=== PATIENT | female | born 1980 | race Caucasian/White ===

== ENCOUNTER 2016-11-01 02:24 | Inpatient (IN) | payer MEDICARE ==
--- NOTE | ~2016-11-01 | CR72 ---
[facility] A Service of [facility] & [facility] RADIOLOGY TEXT RESULTS PATIENT: YUE KULKARNI LOCATION: [address] : [birth year] UNIT #: [id number] AGE: [address]: Trino Oviedo MD SEX: F ORDER DR: [id number] [facility] [address] [facility]. [place], [place] [address] [id number] I MR#: [id number] #: [id number] NAME: YUE KULKARNI : 1980 SEX: F STUDY DATE/TIME: 11/01/2016 16:39 UNIT: [facility] ROOM: [facility] STUDY DESCRIPTION: CR Chest Single View Portable Attending Physician: Trino Oviedo M.D. Ordering Physician: Hattie Bruno M.D. Primary Care Physician: Christiano Steiner M.D. MEDICAL IMAGING REPORT This report is preliminary unless electronic signature is present EXAM Frontal chest, 11/01/2016 INDICATIONS A 35-year-old female for line placement. TECHNIQUE Frontal chest compared 11/01/2016, 1:30 hours FINDINGS Central line from right neck approach terminates at the mid SVC level. Cardiac silhouette is within normal limits. Vascularity is unremarkable, and the lungs are clear. There is no pneumothorax. IMPRESSION Right-sided central line from a neck approach terminates at the mid SVC level. There is no pneumothorax. Lungs are clear. Dictated by... Kyree Fonseca M.D. THIS IS AN ELECTRONICALLY VERIFIED REPORT Kyree Fonseca M.D. at 11/02/2016 7:31 AM Efrain TD: 11/01/2016 21:38 JOB #: [id number] MEDICAL IMAGING REPORT COPY
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
--- NOTE | ~2016-11-01 | EKG ---
PATIENT: YUE KULKARNI UNIT #: [id number] Ventricular Rate: 59 BPM Atrial Rate: 59 BPM P-R Interval: 150 ms QRS Duration: 94 ms Q-T Interval: 478 ms QTC Calculation(Bezet): 473 ms P [place]: -4 degrees Calculated R [place]: 35 degrees Diagnosis Line: Sinus bradycardia with marked sinus arrhythmia Diagnosis Line: Otherwise normal ECG Diagnosis Line: When compared with ECG of 01-NOV-2016 01:44, Diagnosis Line: Vent. rate has decreased BY 79 BPM Diagnosis Line: Confirmed by KATHERINE OROZCO MD ([id number]) on 11/02/2016 Diagnosis Line: 5:31:08 PM INTERPRETING MD: ERNESTO TOWNSEND
--- NOTE | ~2016-11-01 | OR ---
Unit #: [id number] #: [id number] Patient: YUE KULKARNI [id number] [address] [place], [place] [address] [id number] I MR#: [id number] NAME: YUE KULKARNI ROOM: [facility] Date of Procedure: 11/01/2016 Admission Date: 11/01/2016 Surgeon: Curtis Bruno M.D. : 1980 Attending Physician: Trino Oviedo M.D. Primary Care Physician: Christiano Steiner M.D. PROCEDURE OPERATIVE NOTE PROCEDURE Right intrajugular venous catheter placement with ultrasound guidance. INDICATION FOR PROCEDURE Septic shock. COMPLICATIONS None. DESCRIPTION OF PROCEDURE An informed consent was obtained from the patient after explaining the benefits and risks of this procedure. Patient was prepped and positioned in a proper way, then cleaned with chlorhexidine. Then, with ultrasound guidance, a needle was inserted in the right IJ until blood flow was obtained. Then a guidewire was inserted and the needle was removed. Then a catheter was inserted over the guidewire, and the guidewire was removed. Then the catheter was sutured in place and flushed appropriately. A Biopatch and clean dressing were applied, and a stat chest x-ray confirmed placement with no immediate complication. Dictated by... Ruby Gonzalez TD: 11/01/2016 17:42 JOB #: [id number] PROCEDURE OPERATIVE NOTE X CURTIS CUEVA MD PROCEDURE OPERATIVE NOTE
--- NOTE | ~2016-11-01 | CR72 ---
[facility] A Service of [facility] & [facility] RADIOLOGY TEXT RESULTS PATIENT: YUE KULKARNI LOCATION: [facility] : [birth year] UNIT #: [id number] AGE: [address]: Duong Jackson DO SEX: F ORDER DR: [id number] [facility] [address] [place], [place] [address] [id number] MR#: [id number] Acc #: [id number] NAME: YUE KULKARNI : 1980 SEX: F STUDY DATE/TIME: 11/01/2016 01:30 UNIT: [facility] ROOM: STUDY DESCRIPTION: CR Chest Single View Portable Attending Physician: Duong Jackson D.O. Ordering Physician: Duong Jackson D.O. Primary Care Physician: Christiano Steiner M.D. MEDICAL IMAGING REPORT This report is preliminary unless electronic signature is present EXAM Portable chest, 11/01/2016 at 0130 hours. INDICATION Left side chest pain after overdose on heroin tonight. FINDINGS A single AP portable view of the chest shows both lungs to be clear. The heart is normal in size. The mediastinal contour is normal. No significant bone abnormalities are seen. IMPRESSION Normal portable chest. Dictated by... Rylan La Jr., M.D. THIS IS AN ELECTRONICALLY VERIFIED REPORT Rylan La Jr., M.D. at 11/01/2016 5:29 AM OZIEL/taina TD: 11/01/2016 02:39 JOB #: [id number] MEDICAL IMAGING REPORT COPY
--- NOTE | ~2016-11-01 | EKG ---
PATIENT: YEU KULKARNI UNIT #: [id number] Ventricular Rate: 138 BPM Atrial Rate: 138 BPM QRS Duration: 92 ms Q-T Interval: 380 ms QTC Calculation(Bezet): 575 ms Calculated R [place]: 51 degrees Calculated T [place]: -6 degrees Diagnosis Line: Supraventricular tachycardia Diagnosis Line: Nonspecific ST and T wave abnormality Diagnosis Line: Abnormal ECG Diagnosis Line: No previous ECGs available Diagnosis Line: Confirmed by KATHERINE OROZCO MD ([id number]) on 11/02/2016 Diagnosis Line: 6:39:19 AM INTERPRETING MD: ERNESTO TOWNSEND
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
[~2016-11-01 02:24] MED LIST: FLEXERIL PO; IBUPROFEN PO; LORTAB 7.5-5001 TAB PO; MEDROL PO; NO MEDICATIONS; SOMA PO
[2016-11-01 03:04] LABS: ACETAMINOPHEN <10 ug/mL; ALBUMIN SERUM 3.3 g/dL (3.5-5.0); ALCOHOL BLOOD <5 mg/dL (0); ALKALINE PHOSPHATASE 165 U/L (32-92); ALT (SGPT) 46 U/L (10-40); AST (SGOT) 77 U/L (10-42); BILIRUBIN, DIRECT 0.4 mg/dL (0.0-0.2); BILIRUBIN,INDIRECT 0.5 mg/dL (0.0-0.9); BILIRUBIN,TOTAL 0.9 mg/dL (0.2-2.0); BLOOD UREA NITROGEN 13 mg/dL (9-23); CALCIUM SERUM 8.2 mg/dL (8.4-10.2); CARBON DIOXIDE 24 mmol/L (22-31); CHLORIDE 103 mmol/L (100-111); GLOM FILT RATE Estimated ABOVE60 mL/min (>60); GLUCOSE FASTING 112 mg/dL (70-110); POTASSIUM 2.8 mmol/L (3.5-5.1); PROTEIN TOTAL SERUM 6.5 g/dL (6.0-8.3); SALICYLATE <4.0 mg/dL; SODIUM 137 mmol/L (135-145)
[2016-11-01 03:10] LABS: POC - CKMB <1.0 ng/mL (0.0-7.9); POC - TROPONIN <0.05 ng/mL (<=0.05)
[2016-11-01 04:19] LABS: URINE SOURCE CLEAN CATCH
[2016-11-01 04:26] LABS: URINE APPEARANCE TURBID; URINE BLOOD 3+ (NEG); URINE COLOR DK YELLOW; URINE GLUCOSE NEG (NEG); URINE KETONE TRACE (NEG); URINE LEUKOCYTE ESTERASE 2+ (NEG); URINE NITRATE NEG (NEG); URINE PROTEIN 3+ (NEG); URINE SPECIFIC GRAVITY 1.021 (1.003-1.035)
[2016-11-01 04:28] LABS: CULTURE INDICATED? YES; URINE BACTERIA AUWI 1+ (NEGATIVE); URINE SQUAMOUS EPITHELIAL CELL MOD /[HPF]; UWBCS1 AUWI 100-200 (0-5)
[2016-11-01 04:40] LABS: BASOPHIL% 0.1 % (0-2.5); EOSINOPHIL% 0.3 % (0.0-7.0); HEMATOCRIT 27.8 % (35.0-45.0); HEMOGLOBIN 8.8 gm/dL (12.0-16.0); LYMPHOCYTE# 0.1 X10e3 (1.0-3.5); LYMPHOCYTE% 3.9 % (17.0-45.0); MEAN CELL VOLUME 73.8 FL (83-96); MEAN CORPUSCULAR HEMOGLOBIN 23.2 PG (28-34); MEAN CORPUSCULAR HGB CONC 31.5 g/dL (30-36); MEAN PLATELET VOLUME 7.5 FL (6.5-11.5); MONOCYTE% 0.5 % (3.0-12.0); NEUTROPHIL# 2.8 X10e3 (1.5-7.1); NEUTROPHIL% 95.2 % (40-75); PLATELET COUNT 214 X10e3 (140-420); RED BLOOD COUNT 3.77 X10e (3.90-5.30); RED CELL DISTRIBUTION WIDTH 17.8 % (11.0-15.5)
[2016-11-01 04:41] LABS: URINE BILIRUBIN NEG (NEG)
[2016-11-01 04:42] LABS: URINE GRANULAR CAST 0-2 /[HPF]
[2016-11-01 04:43] LABS: DIFF IND NO
[2016-11-01 05:08] LABS: AMPHETAMINE POS (NEG); BARBITURATES NEG (NEG); BENZODIAZEPINES POS (NEG); COCAINE NEG (NEG); MARIJUANA NEG (NEG); OPIATES POS (NEG); TRICYCLIC ANTIDEPRESSANTS NEG (NEG); U METHADONE POS (NEG)
[2016-11-01 06:22] LABS: POC - CKMB <1.0 ng/mL (0.0-7.9); POC - TROPONIN <0.05 ng/mL (<=0.05)
[2016-11-01 11:57] LABS: BLOOD UREA NITROGEN 14 mg/dL (9-23); BUN/CREATININE RATIO 12.72; CALCIUM SERUM 7.2 mg/dL (8.4-10.2); CARBON DIOXIDE 18 mmol/L (22-31); CHLORIDE 110 mmol/L (100-111); CREATININE SERUM 1.1 mg/dL (0.6-1.4); GLOM FILT RATE Estimated ABOVE60 mL/min (>60); GLUCOSE FASTING 127 mg/dL (70-110); MAGNESIUM 1.9 mg/dL (1.6-3.0); PHOSPHOROUS 1.8 mg/dL (2.5-4.6); POTASSIUM 3.4 mmol/L (3.5-5.1); SODIUM 135 mmol/L (135-145)
[2016-11-02 02:58] LABS: BASOPHIL# 0.1 X10e3 (0-0.3); BASOPHIL% 0.2 % (0-2.5); HEMATOCRIT 28.3 % (35.0-45.0); HEMOGLOBIN 8.9 gm/dL (12.0-16.0); LYMPHOCYTE# 1.9 X10e3 (1.0-3.5); LYMPHOCYTE% 6.6 % (17.0-45.0); MEAN CELL VOLUME 73.3 FL (83-96); MEAN CORPUSCULAR HGB CONC 31.3 g/dL (30-36); MEAN PLATELET VOLUME 8.1 FL (6.5-11.5); MONOCYTE# 1.9 X10e3 (0-1.0); MONOCYTE% 6.5 % (3.0-12.0); NEUTROPHIL% 86.7 % (40-75); PLATELET COUNT 258 X10e3 (140-420); RED BLOOD COUNT 3.87 X10e (3.90-5.30); RED CELL DISTRIBUTION WIDTH 18.7 % (11.0-15.5)
[2016-11-02 03:10] LABS: DIFF IND YES; WHITE BLOOD COUNT 28.8 X10e3 (4.0-10.5)
[2016-11-02 03:25] LABS: ALBUMIN SERUM 2.6 g/dL (3.5-5.0); ALKALINE PHOSPHATASE 149 U/L (32-92); ALT (SGPT) 34 U/L (10-40); AST (SGOT) 48 U/L (10-42); BLOOD UREA NITROGEN 16 mg/dL (9-23); BUN/CREATININE RATIO 17.77; CALCIUM SERUM 7.7 mg/dL (8.4-10.2); CARBON DIOXIDE 19 mmol/L (22-31); CHLORIDE 115 mmol/L (100-111); CREATININE SERUM 0.9 mg/dL (0.6-1.4); GLOM FILT RATE Estimated ABOVE60 mL/min (>60); GLUCOSE FASTING 92 mg/dL (70-110); POTASSIUM 4.1 mmol/L (3.5-5.1); PROTEIN TOTAL SERUM 5.8 g/dL (6.0-8.3); SODIUM 141 mmol/L (135-145)
[2016-11-02 03:30] LABS: PLATELET ESTIMATE NORMAL (NORMAL)
[2016-11-02 03:31] LABS: ANISOCYTOSIS MOD; OVALOCYTES PRESENT; POIKILOCYTOSIS SL
[2016-11-02 03:32] LABS: MICROCYTOSIS SL
== END 2016-11-02 14:30 | disposition left against medical advice (07) | DRG 917 ==
LOC: CED 02:24 → CEDOF 06:33 → CICCU3 08:20
PROVIDERS: Emergency Medicine; Internal Medicine; Nurse Practitioner
PROC: 05HM33Z Insertion of Infusion Device into Right Internal Jugular Vein, Percutaneous Approach (ICD-10-PCS; principal; 2016-11-01)
PROC: B543ZZA Ultrasonography of Right Jugular Veins, Guidance (ICD-10-PCS; 2016-11-01)
PROC: B24BYZZ Ultrasonography of Heart with Aorta using Other Contrast (ICD-10-PCS; 2016-11-01)
DX: T40.1X1A Poisoning by heroin, accidental (unintentional), initial encounter (principal); A41.9 Sepsis, unspecified organism; R65.21 Severe sepsis with septic shock; E87.2 Acidosis; F11.10 Opioid abuse, uncomplicated; F17.210 Nicotine dependence, cigarettes, uncomplicated; M54.9 Dorsalgia, unspecified; D64.89 Other specified anemias; E83.42 Hypomagnesemia; E87.6 Hypokalemia; D72.819 Decreased white blood cell count, unspecified
CPT/HCPCS: 36415; 71010; 80048; 80053; 80076; 80307; 81003; 82308; 82550; 82553; 83605; 83735; 84100; 84484; 84703; 85025; 87040; 87086; 93005; 93306; 96361; 96365; 96366; 96367; 99285; G0480; J0696; J1650; J1885; J2543; J3370; J3475

== ENCOUNTER 2017-01-16 17:48 | Inpatient (IN) | payer MEDICARE ==
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
--- NOTE | ~2017-01-16 | PN ---
Unit #: [id number] #: [id number] Patient: YUE KULKARNI [id number] [facility] [address] [place] [address] [id number] I MR#: [id number] NAME: YUE KULKARNI ROOM: P209 Age: 36 Sex: F Admission Date: 01/16/2017 : 1980 Attending Physician: Escobar Gamble M.D. Admitting Physician: Escobar Gamble M.D. Primary Care Physician: Ruby Jones PROGRESS NOTES DATE 01/20/2017 DISCUSSION The patient appears significantly improved today. She is reporting significant reduction in symptoms of opiate withdrawal. Should she sustain progress discharge could take place as early as tomorrow. Dictated by... Escobar Gamble M.D. CB/jose TD: 01/21/2017 07:27 JOB #: [id number] EVELINE PROGRESS NOTES Page 1 of 1 X Escobar Gamble MD X PROGRESS NOTE
--- NOTE | ~2017-01-16 | HP ---
Unit #: [id number] #: [id number] Patient: VANESSA KULKARNI [id number] [place] [address] [id number] I MR#: [id number] NAME: VANESSA KULKARNI ROOM: P209 Age: 36 Sex: F Admission Date: 01/16/2017 : 1980 Attending Physician: Escobar Gamble M.D. Admitting Physician: Escobar Gamble M.D. Primary Care Physician: Christiano Steiner M.D. HISTORY AND PHYSICAL HISTORY OF PRESENT ILLNESS Vanessa is a [id number] female admitted on 01/16/[address] [place] [address] for detox from heroin. PAST MEDICAL HISTORY Chronic back pain. PAST SURGICAL HISTORY Multiple surgical repairs of fractures of her L3, L4, L5 and S1. SOCIAL HISTORY Smokes one-half pack of cigarettes daily. No alcohol use. Does report daily use of heroin. She is currently single and living with her parents. FAMILY HISTORY Noncontributory. REVIEW OF SYSTEMS CONSTITUTIONAL: No fever or chills. HEENT: Denies any sore throat, ear pain or runny nose. CARDIOVASCULAR: Denies chest pain, irregular heart rhythm or palpitations. CHEST: Denies shortness of breath or cough. No hemoptysis. GASTROINTESTINAL: Denies nausea, vomiting, diarrhea or chronic constipation. ENDOCRINE: Denies history of increased thirst or urination. No recent significant weight loss or gain. GENITOURINARY: Denies dysuria, frequency, or hematuria. SKIN: Denies any rashes. HEMATOLOGIC: Denies history of increased bleeding or bruising. MUSCULOSKELETAL: Denies any hot, swollen joints. No generalized muscle pain. NEUROLOGIC: Denies problems with vision or speech. No frequent, severe headaches. No numbness, tingling or weakness in any extremities. Denies loss of bladder or bowel control. CURRENT MEDICATIONS None. ALLERGIES None. Unit #: [id number] #: [id number] Patient: VANESSA KULKARNI PHYSICAL EXAMINATION GENERAL: Alert, oriented, in no acute distress. VITAL SIGNS: Blood pressure 125/68, heart rate 82, respirations 16, temperature 98.5. HEIGHT: 5 foot 11 inches. WEIGHT: 170 pounds. SKIN: Warm and dry without rash or lesion. HEENT: Normocephalic. TMs not viewed. Oral and nasal passages clear. Conjunctivae clear. PERRLA. EOMs intact. NECK: Supple without lymphadenopathy or thyromegaly. HEART: Regular rate and rhythm without murmur. LUNGS: Clear. ABDOMEN: Soft, nontender, without masses or hepatosplenomegaly. : Not done. EXTREMITIES: No evidence of cyanosis, clubbing or edema. Moves all without focal deficit. NEUROLOGICAL: Grossly within normal limits. Cranial Nerves: II: Visual pollock are intact. III, IV AND : Extraocular movements are intact. Pupils are equal, round and reactive to light. V: Facial sensation is grossly normal. VII: Facial movements and expression are normal. VIII: Auditory acuity grossly intact. IX, X: Uvula is midline. Phonation is normal. XI: Patient shrugs shoulders and turns head normally. XII: Tongue protrudes in the midline. Sensory and Motor Function: Sensory and motor sensation is grossly normal. Motor: moves all extremities well. Coordination: Gait is normal. Deep Tendon Reflexes: Intact. IMPRESSION Psychiatric admission, chronic back pain. RECOMMENDATIONS Psychiatric, per psychiatrist. MEDICAL: I see no contraindications to participating in facility's activities. MEDICAL PROGNOSIS Good. MEDICAL CONDITION Stable. Dictated by... Jomar Virgen/mary TD: 01/17/2017 20:42 JOB #: [id number] Unit #: [id number] #: [id number] Patient: VANESSA KULKARNI HISTORY AND PHYSICAL Page 1 of 1 X DAYSI AGUAYO APRN X HISTORY AND PHYSICAL
--- NOTE | ~2017-01-16 | PN ---
Unit #: [id number] #: [id number] Patient: YUE KULKARNI [id number] [facility] [address] [place] [address] [id number] MR#: [id number] NAME: YUE KULKARNI ROOM: P209 Age: 36 Sex: F Admission Date: 01/16/2017 : 1980 Attending Physician: Escobar Gamble M.D. Admitting Physician: Escobar Gamble M.D. Primary Care Physician: Ruby Jones PROGRESS NOTES DATE 01/18/2017 DISCUSSION The patient continues to complain of significant symptoms of opioid withdrawal. She is active within the therapeutic milieu and there has been no inappropriate contact with male peers per staff. Dictated by... Escobar Gamble M.D. CB/mary TD: 01/18/2017 21:25 JOB #: [id number] [facility] PROGRESS NOTES Page 1 of 1 X Escobar Gamble MD X PROGRESS NOTE
--- NOTE | ~2017-01-16 | PN ---
Unit #: [id number] #: [id number] Patient: YUE KULKARNI [id number] [facility] [address] [place] [address] [id number] MR#: [id number] NAME: YUE KULKARNI ROOM: P209 Age: 36 Sex: F Admission Date: 01/16/2017 : 1980 Attending Physician: Escobar Gamble M.D. Admitting Physician: Escobar Gamble M.D. Primary Care Physician: Ruby Jones PROGRESS NOTES DATE 01/19/2017 DISCUSSION The patient continues to have a difficult and arduous opioid detox continuing to complain of GI discomfort and vomiting. We continue current treatment. Dictated by... Escobar Gamble M.D. CB/mary TD: 01/19/2017 16:29 JOB #: [id number] [facility]EL[facility] PROGRESS NOTES Page 1 of 1 X Escobar Gamble MD X PROGRESS NOTE
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
[2017-01-17 09:54] LABS: BASOPHIL% 0.2 % (0-2.5); EOSINOPHIL% 0.6 % (0.0-7.0); HEMATOCRIT 28.1 % (35.0-45.0); HEMOGLOBIN 8.7 gm/dL (12.0-16.0); LYMPHOCYTE# 1.3 X10e3 (1.0-3.5); LYMPHOCYTE% 16.9 % (17.0-45.0); MEAN CELL VOLUME 70.8 FL (83-96); MEAN CORPUSCULAR HGB CONC 31.1 g/dL (30-36); MEAN PLATELET VOLUME 7.2 FL (6.5-11.5); MONOCYTE# 0.5 X10e3 (0-1.0); MONOCYTE% 6.5 % (3.0-12.0); NEUTROPHIL# 5.8 X10e3 (1.5-7.1); NEUTROPHIL% 75.8 % (40-75); PLATELET COUNT 415 X10e3 (140-420); RED BLOOD COUNT 3.97 X10e (3.90-5.30); RED CELL DISTRIBUTION WIDTH 17.8 % (11.0-15.5); WHITE BLOOD COUNT 7.7 X10e3 (4.0-10.5)
[2017-01-17 10:02] LABS: URINE APPEARANCE CLOUDY; URINE BILIRUBIN NEG (NEG); URINE BLOOD NEG (NEG); URINE COLOR DK YELLOW; URINE GLUCOSE NEG (NEG); URINE KETONE NEG (NEG); URINE LEUKOCYTE ESTERASE TRACE (NEG); URINE NITRATE NEG (NEG); URINE PH 6.5 (5-8); URINE PROTEIN NEG (NEG); URINE SPECIFIC GRAVITY 1.013 (1.003-1.035)
[2017-01-17 10:05] LABS: URBCS1 AUWI 0-2 /[HPF] (0-2); URINE BACTERIA AUWI 2+ (NEGATIVE); URINE SQUAMOUS EPITHELIAL CELL FEW /[HPF]
[2017-01-17 10:29] LABS: ALBUMIN SERUM 3.3 g/dL (3.5-5.0); BILIRUBIN,TOTAL 0.4 mg/dL (0.2-2.0); BUN/CREATININE RATIO 13.33; CALCIUM SERUM 8.9 mg/dL (8.4-10.2); CREATININE SERUM 0.6 mg/dL (0.6-1.4); GLOM FILT RATE Estimated 117.3 mL/min (>60); POTASSIUM 3.7 mmol/L (3.5-5.1); PROTEIN TOTAL SERUM 7.3 g/dL (6.0-8.3)
[2017-01-17 10:34] LABS: DIFF IND NO
[2017-01-17 10:52] LABS: U HYALINE CASTS AUWI 0-2 /[LPF]; URINE MUCUS PRESENT
[2017-01-17 11:17] LABS: AMPHETAMINE POS (NEG); BARBITURATES NEG (NEG); BENZODIAZEPINES NEG (NEG); COCAINE NEG (NEG); MARIJUANA NEG (NEG); OPIATES POS (NEG); TRICYCLIC ANTIDEPRESSANTS NEG (NEG); U METHADONE NEG (NEG)
== END 2017-01-21 13:50 | disposition hospice, home (50) | DRG 897 ==
LOC: P2S 19:39
PROVIDERS: Specialist
PROC: HZ2ZZZZ Detoxification Services for Substance Abuse Treatment (ICD-10-PCS; principal; 2017-01-17)
DX: F15.10 Other stimulant abuse, uncomplicated (principal); F11.10 Opioid abuse, uncomplicated; G89.29 Other chronic pain; F17.210 Nicotine dependence, cigarettes, uncomplicated
CPT/HCPCS: 80053; 80307; 81003; 84703; 85025; 86592; J2550